=== PATIENT | female | born 1970 | race Caucasian/White ===

== ENCOUNTER 2016-10-16 08:51 | Outpatient (CLI) | payer OTHER | END 2016-10-16 18:52 | disposition home or self-care (01) | LOC: SNM 08:51 | PROVIDERS: ATTEND Internal Medicine Gastroenterology | DX: K31.84 Gastroparesis (principal) | CPT/HCPCS: 78264; A9541 ==

== ENCOUNTER 2022-10-28 20:45 | Emergency (ER) | payer OTHER ==
[~2022-10-28] VITALS: Ht 167.6 cm; Wt 99.8 kg
[2022-10-28 20:58] VITALS: BP_SYST 189
--- NOTE | 2022-10-28 21:19 | NUR ---
PT WITH BP OF 198/112. MD AND CN MADE AWARE. PT IN WAITING ROOM UNTIL BED BECOMES OPEN. PT ACCOMPANIED BY .
--- NOTE | 2022-10-28 22:33 | NUR ---
Dr. Ayala at bedside examining the patient.
--- NOTE | 2022-10-28 22:40 | NUR ---
Patient placed in ER CHAIR 2 for evaluation. Bed in lowest position with siderails up. Instructed to notify ED staff for any changes in condition or worsening of symptoms. Patient verbalized understanding.
[2022-10-28] MEDS ORDERED: cloNIDine HCL 0.1 MG TABLET PO ONE (22:45)
[2022-10-28 23:37] LABS: HEMATOCRIT 42.8 % (36-48); HEMOGLOBIN 13.6 g/dL (12.0-16.0); MEAN CORPUSCULAR HEMOGLOBIN 26 pg (27-31); MEAN CORPUSCULAR HGB CONC 32 % (32-36); MEAN CORPUSCULAR VOLUME 82 fL (79.0-98.0); PLATELET COUNT (AUTO) 291 K/uL (130-430); RED BLOOD CELL COUNT(AUTO) 5.22 MIL/uL (4.2-6.2); RED CELL DISTRIBUTION WIDTH 14.8 % (9.0-15.0)
[2022-10-28 23:50] LABS: WHITE BLOOD COUNT (AUTO) 36.4 K/uL (4.8-10.8)
[2022-10-28 23:58] LABS: ALANINE AMINOTRANSFERASE 23 U/L (12-78); ALBUMIN 3.4 g/dL (3.4-4.8); ANION GAP 5 (5-15); ASPARTATE AMINOTRANSFERASE 14 U/L (10-37); CALCIUM 8.6 mg/dL (8.4-11.0); CHLORIDE 101 mmol/L (98-107); CREATININE 0.71 mg/dL (0.55-1.30); GFR AFRICAN AMERICAN 110 mL/min (>90); GLUCOSE 136 mg/dL (70-99); TOTAL BILIRUBIN 0.5 mg/dL (0.0-1.0); UREA NITROGEN, BLOOD 15 mg/dL (8-21)
[2022-10-29] MEDS ORDERED: AMLO5TAB4 PO (00:15)
[2022-10-29] MEDS ORDERED: LISI1TAB57 PO (00:15)
--- NOTE | 2022-10-29 00:20 | NUR ---
Patient given written and verbal discharge instructions BY DR. ARREDONDO and verbalizes understanding. ER MD discussed with patient the results and treatment provided. Patient in stable condition. ID arm band removed. Rx of AMLODIPINE AND LISINOPRIL/HCTZ given. Patient educated on pain management and to follow up with PMD. Pain Scale 0/10. Opportunity for questions provided and answered. Medication side effect fact sheet provided.
[2022-10-29 00:25] LABS: BASOPHILS % (MANUAL) 0 % (0-2); EOSINOPHILS % (MANUAL) 2 % (0-7); LYMPHOCYTES % (MANUAL) 73 % (20-46); MONOCYTES % (MANUAL) 6 % (0-11)
== END 2022-10-29 01:00 | disposition home or self-care (01) ==
LOC: SED 20:45
DX: R06.02 Shortness of breath (principal); R07.9 Chest pain, unspecified; F43.9 Reaction to severe stress, unspecified; I10 Essential (primary) hypertension; J45.909 Unspecified asthma, uncomplicated; Z79.899 Other long term (current) drug therapy
CPT/HCPCS: 36415; 80053; 84484; 85007; 85027; 93005; 99284

== ENCOUNTER 2024-04-07 14:00 | Inpatient (IN) | payer OTHER ==
[~2024-04-07] VITALS: Ht 165.1 cm; Wt 104.1 kg
[~2024-04-07 14:00] MED LIST: AMLO5TAB4 PO; LISI1TAB57 PO
[2024-04-07 14:08] VITALS: BP_SYST 169; PULSE 89; RESP 22; TEMP 98.3; O2SAT 96
--- NOTE | 2024-04-07 14:45 | NUR ---
Dr Farias evaluating patient in the triage room
[2024-04-07 15:27] LABS: HEMATOCRIT 38.4 % (36-48); HEMOGLOBIN 12.7 g/dL (12.0-16.0); MEAN CORPUSCULAR HEMOGLOBIN 27 pg (27-31); MEAN CORPUSCULAR HGB CONC 33 % (32-36); MEAN CORPUSCULAR VOLUME 81 fL (79.0-98.0); PLATELET COUNT (AUTO) 311 K/uL (130-430); RED BLOOD CELL COUNT(AUTO) 4.76 MIL/uL (4.2-6.2); RED CELL DISTRIBUTION WIDTH 14.4 % (9.0-15.0); WHITE BLOOD COUNT (AUTO) 29.3 K/uL (4.8-10.8)
[2024-04-07] MEDS: methylPREDNISolone SOD SUCC/PF 62.5 MG/ML VIAL IM ONE (15:38)
[2024-04-07] MEDS: IPRATROPIUM/ALBUTEROL SULFATE 3 ML AMPUL.NEB (DUONEB) INH ONE (15:39)
--- NOTE | 2024-04-07 15:39 | NUR ---
RT AT BEDSIDE
--- NOTE | 2024-04-07 15:40 | NUR ---
PT BIBS, PT C/C SOB x4 DAYS. PT REPORTS SHE WAS AT [place] AND BELIEVES THAT IS WHERE SHE AQUIRED COVID. PT HAD FEVER A FEW DAYS AGO. PT HAS PROD COUGH, DIARRHEA, CONGESTION, GENERAL WEAKNESS. PMH OF LEAUKEMIA AND HTN. NKA. VSS.
[2024-04-07 16:14] LABS: BAND % (MANUAL) 0 % (0-6); BASOPHILS % (MANUAL) 0 % (0-2); EOSINOPHILS % (MANUAL) 1 % (0-7); HYPOCHROMASIA 1+; LYMPHOCYTES % (MANUAL) 60 % (20-46); MONOCYTES % (MANUAL) 5 % (0-11)
[2024-04-07 16:31] LABS: ANION GAP 2 (5-15); CALCIUM 8.6 mg/dL (8.4-11.0); CHLORIDE 99 mmol/L (98-107); CREATININE 0.82 mg/dL (0.55-1.30); GFR AFRICAN AMERICAN 93 mL/min (>90); GLUCOSE 122 mg/dL (74-106); SODIUM SERUM 142 mmol/L (136-145); UREA NITROGEN, BLOOD 16 mg/dL (8-21)
[2024-04-07 16:33] LABS: GFR NON AFRICAN-AMERICAN 77 mL/min (>90)
[2024-04-07 16:34] LABS: CARBON DIOXIDE 41 mmol/L (23-29); POTASSIUM 2.6 mmol/L (3.5-5.1)
--- NOTE | 2024-04-07 17:00 | NUR ---
Admit bed requested Patient will be admitted to care of . Admitted to TELE unit. Diagnosis COVID AND RESPIRATORY DISTRESS Inpatient (Yes or No) Y Observation (Yes or No) N Orientation concerns or request close to nursing station (Yes or No) N Covid Status Y On vent or bipap N Isolation requirements Y Needs a sitter N From Home (Yes or if No enter name of facility) Y Requires Dialysis (Yes or No) N Med Rec Completed (Yes of No) Y
[2024-04-07] MEDS: POTASSIUM CHLORIDE 20 MEQ/PKT PACKET PO ONE (17:15)
[2024-04-07 17:52] LABS: ABG O2 SAT% ESTIMATE 93.8 % (94.0-98.0); BLOOD GAS BASE EXCESS 10.4 mmol/L (-2.0-3.0); BLOOD GAS HCO3 34.6 mmol/L (21.0-28.0); BLOOD GAS PCO2 44.2 mmHg (32.0-45.0); BLOOD GAS PH 7.511 (7.350-7.450); BLOOD GAS PO2 62.6 mmHg (83.0-108.0)
[2024-04-07 17:56] LABS: ALLEN'S TEST POSITIVE (P)
[2024-04-07] MEDS ORDERED: KCL 20 mEq in 100 mL (PREMIX) 200 ML IV ONE (18:14)
--- NOTE | 2024-04-07 18:15 | NUR ---
continuous cardiac monitoring
[2024-04-07] MEDS: KCL 40 mEq in 100 mL (PREMIX) 100 ML IV ONE (18:25)
--- NOTE | 2024-04-07 18:29 | NUR ---
IV infusing with 20meq potassium with no issues. IV site checked within 15 minutes of initiation. call josey dale, pt instructed to call if any swelling or redness or discomfort occurs.
[2024-04-07] MEDS ORDERED: OMEP40CA20 PO (18:37)
[2024-04-07] MEDS ORDERED: HYDR25TA4 PO (18:37)
[2024-04-07] MEDS ORDERED: MONT-40 PO (18:37)
[2024-04-07] MEDS ORDERED: ROPI4TAB41 PO (18:37)
[2024-04-07] MEDS ORDERED: LOSA25TA18 PO (18:37)
--- NOTE | 2024-04-07 18:37 | NUR ---
Medication reconciliation completed with information provided by PATIENT. Any prior medication reconciliation on file was reviewed and corrected.
--- NOTE | 2024-04-07 19:15 | NUR ---
Received patient sitting up in bed, aox4, denies pain, oxygen cannula removed, o2 sat 93% on room air, denies SOB. KCL 20 MEQ at a rate of 25 ml/hr infusing to right ac, cathiter dislodged iv site, d/c and new iv started at right anterior hand 22 gauge cathiter, placement tolerated.
[2024-04-07] MEDS ORDERED: cefTRIAXone 2 GM VIAL ONE (20:13)
--- NOTE | 2024-04-07 20:15 | NUR ---
#22 Gauge left anterior hand saline lock started, 2000 ml NS bolus and rocephin 2 grams at 100 ml hr infusing to left hand iv.
[2024-04-07] MEDS: NACL 0.9% 2,000 ML IV ONE (20:23)
[2024-04-07 20:50] VITALS: O2SAT 95
--- NOTE | 2024-04-07 20:50 | NUR ---
ADMIT NOTE Received pt from ER nurseLu to the floor with a diagnosis of Severe hypokalemia, Covid, Asthma with acute exacerbation, and Early pneumonia. Admission process initiated. patient oriented to pain management, safety and call light-teach back done.
[2024-04-07 20:55] VITALS: BP_SYST 135; PULSE 81; RESP 20; TEMP 96.8; O2SAT 94
--- NOTE | 2024-04-07 20:57 | NUR ---
Patient will be admitted to care of Vic Louie. Admitted to telemetry unit. Will go to room 133 a . Belongings list completed. Complete and up to date summary report printed. SBAR report to be given at bedside with opportunity for questions.Gave report to nurse Somers.
--- NOTE | 2024-04-07 21:04 | NUR ---
CONFIRMED WITH NURSE BRANDI ORAL KCL 40 meq qiven as ordered. Pt. confirmed taking oral potassium.
[2024-04-07 21:18] VITALS: BP_SYST 135; PULSE 81; RESP 20; TEMP 96.8
[2024-04-08] VITALS: BP_SYST 138; PULSE 78; RESP 20; TEMP 97.8; O2SAT 95
--- NOTE | 2024-04-08 02:46 | NUR ---
CONSULTATION PAGED/CALLED Reason for Consultation: COVID, RESP DISTRESS Person Who was Notified: KOURTNEY Consulting Physician: RITA Industrial Gas Servicer Supervisor Specialty: Ordering Physician: GAGANDEEP
[2024-04-08] MEDS: AZITHROMYCIN 500 MG/VIAL (ZITHROMAX) IV ONE (03:26)
[2024-04-08] MEDS: AZITHROMYCIN 500 MG in NS 250 ML IV ONE (03:30)
[2024-04-08] MEDS ORDERED: ACETAMINOPHEN 325 MG TABLET PO PRN (04:15)
[2024-04-08] MEDS: *LOVENOX 1MG/KG Q24H/PHARMACY XX ONE (04:30)
[2024-04-08] MEDS: POTASSIUM CHLORIDE 20 MEQ/PKT PACKET PO SCH (05:09)
[2024-04-08] MEDS: ACETAMINOPHEN 325 MG TABLET PO PRN ×2 (05:10→12:15)
--- NOTE | 2024-04-08 05:48 | NUR ---
CONSULTATION PAGED/CALLED Reason for Consultation: COVID,RESP DISTRESS Person Who was Notified:ELYSIA Consulting Physician: FELECIA Developmental Services Worker Specialty: Ordering Physician: GAGANDEEP
--- NOTE | 2024-04-08 06:41 | NUR ---
CLOSING NOTE NO S/S OF DISTRESS NOTED, VSS, IV PATENT, PAIN DENIED, BED LOW AND LOCKED WITH SIDE RAILS UP X4, CALL LIGHT WITHIN A REACH, WILL ENDORSE DAYTIME NURSE.
--- NOTE | 2024-04-08 08:15 | NUR ---
opening note warehouse worker 2nd shift endorsed care. patient seen resting in bed with tray at bedside, respirations even and unlabored, no signs of acute distress. Patient denies any pain at this time. IV patent/benign, no IV fluids running at this time. patient a&o x4, on airborne precautions. Bed locked, in lowest position, oriented to call light.
[2024-04-08] MEDS: MONTELUKAST 10 MG TABLET PO SCH (08:16)
[2024-04-08] MEDS: LOSARTAN POTASSIUM 25 MG TABLET PO SCH (08:17)
[2024-04-08] MEDS: HYDROCHLOROTHIAZIDE 25 MG TABLET (HCTZ) PO SCH (08:17)
[2024-04-08] MEDS: amLODIPine BESYLATE 5 MG TABLET PO SCH (08:18)
[2024-04-08 08:45] VITALS: O2SAT 92
[2024-04-08] MEDS ORDERED: lisinopriL 20 MG TABLET PO SCH (09:00)
[2024-04-08] MEDS ORDERED: HYDROCHLOROTHIAZIDE 25 MG TABLET (HCTZ) PO SCH (09:00)
[2024-04-08] MEDS ORDERED: OMEPRAZOLE Non-Formulary 20 MG CAPSULE.DR PO SCH (09:00)
[2024-04-08] MEDS ORDERED: ONDANSETRON HCL 4 MG/2 ML VIAL IVP PRN (11:15)
[2024-04-08] MEDS ORDERED: HYDROcodone/ACETAMIN 5-325 MG TAB (NORCO/ VICODIN) PO PRN (11:15)
[2024-04-08] MEDS ORDERED: NALOXONE HCL 0.4 MG/ML AMP (NARCAN) IVP PRN ×2 (11:15)
[2024-04-08] MEDS ORDERED: LORazepam 2 MG/ML VIAL IVP PRN (11:15)
[2024-04-08] MEDS ORDERED: HYDROcodone/ACETAMIN 10-325 MG TAB PO PRN (11:15)
[2024-04-08 11:19] LABS: ALBUMIN 3.2 g/dL (3.4-4.8); BILIRUBIN,DIRECT 0.1 mg/dL (0.0-0.3); TOTAL BILIRUBIN 0.3 mg/dL (0.0-1.0); TOTAL PROTEIN, SERUM 6.5 g/dL (6.4-8.3)
[2024-04-08 11:44] LABS: BASOPHILS % (AUTO) 0.1 % (0.0-2.0); CALCIUM 8.4 mg/dL (8.4-11.0); CREATININE 0.7 mg/dL (0.55-1.30); HEMATOCRIT 39.6 % (36-48); HEMOGLOBIN 12.7 g/dL (12.0-16.0); LYMPHOCYTES # (AUTO) 25.4 K/uL (1.0-5.5); LYMPHOCYTES % (AUTO) 62.9 % (20.5-51.5); MEAN CORPUSCULAR HEMOGLOBIN 27 pg (27-31); MEAN CORPUSCULAR HGB CONC 32 % (32-36); MEAN CORPUSCULAR VOLUME 83 fL (79.0-98.0); MONOCYTES # (AUTO) 0.6 K/uL (0.0-1.0); MONOCYTES % (AUTO) 1.6 % (1.7-9.3); NEUTROPHILS # (AUTO) 14.3 K/uL (1.8-7.7); PLATELET COUNT (AUTO) 327 K/uL (130-430); POTASSIUM 3.5 mmol/L (3.5-5.1); RED BLOOD CELL COUNT(AUTO) 4.81 MIL/uL (4.2-6.2); RED CELL DISTRIBUTION WIDTH 14.4 % (9.0-15.0)
[2024-04-08] MEDS: DECADRON 4 MG TABLET PO ONE (12:19)
[2024-04-08 12:37] LABS: WHITE BLOOD COUNT (AUTO) 40.4 K/uL (4.8-10.8)
[2024-04-08 12:43] LABS: NEUTROPHILS % (AUTO) 35.4 % (40.0-70.0)
[2024-04-08 12:55] VITALS: BP_SYST 139; PULSE 87; RESP 18; TEMP 97.9; O2SAT 95
[2024-04-08] MEDS: NORMAL SALINE 5 ML DISP.SYRIN IVF SCH (14:28)
--- NOTE | 2024-04-08 14:32 | NUR ---
Reported critical lab value WBCs 40.[address] Louie
[2024-04-08 16:31] VITALS: BP_SYST 132; PULSE 87; RESP 16; TEMP 97.6; O2SAT 95
[2024-04-08 19:00] VITALS: O2SAT 94
--- NOTE | 2024-04-08 19:00 | NUR ---
closing note patient seen resting in bed, no signs of acute distress, patient denies any pain at this time. Iv fluid running, iv patent./benign. Bed locked, in lowest position, and oriented to call light.
--- NOTE | 2024-04-08 19:20 | NUR ---
OPENING NOTE NO S/S OF DISTRESS NOTED, PAIN DENIED, BED LOW AND LOCKED WITH SIDE RAILS UP X2, CALL LIGHT WITHIN A REACH.
[2024-04-08 20:00] VITALS: BP_SYST 135; PULSE 82; RESP 20; TEMP 97.6; O2SAT 94
[2024-04-08] MEDS: cefTRIAXone 1 GM in D5W 50 ML IV SCH (22:14)
[2024-04-09] VITALS: BP_SYST 128; PULSE 78; RESP 18; TEMP 98.1; O2SAT 95
[2024-04-09 05:39] LABS: BASOPHILS % (AUTO) 0.1 % (0.0-2.0); LYMPHOCYTES # (AUTO) 30.1 K/uL (1.0-5.5); MEAN CORPUSCULAR HEMOGLOBIN 26 pg (27-31); MEAN CORPUSCULAR HGB CONC 32 % (32-36); MEAN CORPUSCULAR VOLUME 83 fL (79.0-98.0); MONOCYTES # (AUTO) 1.2 K/uL (0.0-1.0); MONOCYTES % (AUTO) 2.3 % (1.7-9.3); NEUTROPHILS # (AUTO) 19.7 K/uL (1.8-7.7); NEUTROPHILS % (AUTO) 38.6 % (40.0-70.0); PLATELET COUNT (AUTO) 368 K/uL (130-430); RED BLOOD CELL COUNT(AUTO) 4.58 MIL/uL (4.2-6.2); RED CELL DISTRIBUTION WIDTH 14.3 % (9.0-15.0)
[2024-04-09 06:09] LABS: CALCIUM 8.5 mg/dL (8.4-11.0); CREATININE 0.72 mg/dL (0.55-1.30); TOTAL BILIRUBIN 0.2 mg/dL (0.0-1.0); TOTAL PROTEIN, SERUM 6.2 g/dL (6.4-8.3)
--- NOTE | 2024-04-09 06:13 | NUR ---
CLOSING NOTE PT ALERT, ORIENTED TO TIME, PLACE, AND DATE, VSS, NO S/S OF DISTRESS NOTED, PAIN DENIED, BED LOW AND LOCKED WITH SIDE RAILS UPX4, CALL LIGHT WITHIN A REACH, WILL ENDORSE DAYTIME NURSE.
[2024-04-09 06:30] LABS: POTASSIUM 2.8 mmol/L (3.5-5.1)
[2024-04-09 08:30] VITALS: O2SAT 94
--- NOTE | 2024-04-09 08:45 | NUR ---
OPENING NOTE PRODUCTION SUPERVISOR ENDORSED CARE. PATIENT SEEN RESTING IN BED, NO OXYGEN BEING USED, RESPIRATIONS EVEN AND UNLABORED, NO SIGNS OF ACUTE DISTRESS. PATIENT DENIES PAIN. IV SITE PATENT/BENIGN, NO SIGNS OF SWELLING OR ERYTHEMA. BED LOCKED, IN LOWEST POSITION, CALL LIGHT IN REACH.
[2024-04-09] MEDS: AZITHROMYCIN 250 MG in NS 250 ML IV SCH (08:48)
[2024-04-09] MEDS: DECADRON 4 MG TABLET PO SCH (08:58)
[2024-04-09] MEDS: PANTOPRAZOLE SODIUM 40 MG TAB PO SCH (08:59)
[2024-04-09] MEDS: ENOXAPARIN SODIUM 40 MG/0.4 ML SYRINGE SUBCUT SCH (09:00)
[2024-04-09 12:57] LABS: WHITE BLOOD COUNT (AUTO) 51.1 K/uL (4.8-10.8)
[2024-04-09 13:29] VITALS: BP_SYST 145; PULSE 88; RESP 19; TEMP 97.6; O2SAT 91
[2024-04-09] MEDS: KCL 40 mEq in 100 mL (PREMIX) 100 ML IV ONE (14:48)
[2024-04-09 17:29] VITALS: BP_SYST 143; PULSE 96; RESP 19; TEMP 97.7; O2SAT 94
--- NOTE | 2024-04-09 18:00 | NUR ---
DR. SALINAS AT BEDSIDE
--- NOTE | 2024-04-09 19:04 | NUR ---
CLOSING NOTE PATIENT SITTING UP IN BED WITH TRAY AT BEDSIDE. ABX RUNNING ON IV - SITE PATENT, NO SWELLING OR ERYTHEMA. ON ROOM AIR, NO ACUTE RESPIRATORY DISTRESS NOTED. BED LOCKED, IN LOWEST POSITION, CALL LIGHT IN REACH. NEEDS MET AT THIS TIME.
--- NOTE | 2024-04-09 19:15 | NUR ---
OPENING NOTE REPORT RECEIVED FROM DAYSHIFT NURSE. PATIENT RECEIVED LYING IN BED, AWAKE, NO S/S OF ACUTE DISTRESS. BREATHING EVEN AND UNLABORED. HOB RAISED. NASAL CANULA ATTACHED PROPERLY, ON 2L OF OXYGEN. IV SITE PATENT.CALL LIGHT WITH PATIENT. BED IS LOCKED AND AT LOWEST POSITION. PLAN OF CARE ON GOING.
[2024-04-09 20:00] VITALS: BP_SYST 139; PULSE 82; RESP 18; TEMP 97.5; O2SAT 93
[2024-04-09 21:10] VITALS: O2SAT 93
--- NOTE | 2024-04-09 23:24 | NUR ---
ROUNDS PATIENT IN BED, RESTING. NO SIGNS OF DISCOMFORT NOTED. HOB RAISED.ALL NEEDS MET. SAFETY, ISOLATION PRECAUTIONS IN PLACE. CALL LIGHT WITH PATIENT. PLAN OF CARE ON GOING.
[2024-04-10] VITALS: BP_SYST 134; PULSE 78; RESP 18; TEMP 97.4; O2SAT 94
--- NOTE | 2024-04-10 03:19 | NUR ---
ROUNDS PATIENT IN BED, AWAKE, READING A BOOK. GRAPE JUICE PROVIDED PER REQUEST. NO SIGNS OF DISCOMFORT. CHEST RISE AND FALL EVEN BILATERALLY. ALL NEEDS MET. CALL LIGHT WITH PATIENT. PLAN OF CARE ON GOING.
--- NOTE | 2024-04-10 06:29 | NUR ---
CLOSING NOTE PATIENT IN BED, RESTING. NO S/S OF ACUTE DISTRESS. BREATHING EVEN AND UNLABORED. HOB RAISED. NASAL CANULA ATTACHED PROPERLY, ON 2L OF OXYGEN. IV SITE PATENT. ALL NEEDS MET THROUGHOUT SHIFT. FALL, SAFETY, ISOLATION PRECAUTIONS MAINTAINED THROUGHOUT SHIFT. PLAN OF CARE ON GOING.
[2024-04-10 08:00] VITALS: BP_SYST 131; PULSE 73; RESP 16; TEMP 97.2; O2SAT 94; O2SAT 95
--- NOTE | 2024-04-10 08:27 | NUR ---
opening note engineering technician endorsed care. Patient seen a&o x4, respirations even/unlabored. No signs of acute distress, patient denies pain at this time. No IV fluids running at this time. On room air currently. Oriented to call light.
[2024-04-10 08:52] LABS: HEMATOCRIT 37.5 % (36-48); MEAN CORPUSCULAR HEMOGLOBIN 26 pg (27-31); MEAN CORPUSCULAR HGB CONC 32 % (32-36); MEAN CORPUSCULAR VOLUME 83 fL (79.0-98.0); PLATELET COUNT (AUTO) 367 K/uL (130-430); RED BLOOD CELL COUNT(AUTO) 4.54 MIL/uL (4.2-6.2); RED CELL DISTRIBUTION WIDTH 14.6 % (9.0-15.0)
[2024-04-10 08:59] LABS: ERYTHROCYTE SEDIMENTATION RATE 14 MM/HR (0-20)
[2024-04-10 09:00] LABS: ALBUMIN 2.9 g/dL (3.4-4.8); CALCIUM 8.1 mg/dL (8.4-11.0); CREATININE 0.71 mg/dL (0.55-1.30); POTASSIUM 3.1 mmol/L (3.5-5.1); TOTAL BILIRUBIN 0.3 mg/dL (0.0-1.0); TOTAL PROTEIN, SERUM 5.8 g/dL (6.4-8.3)
[2024-04-10 09:06] LABS: WHITE BLOOD COUNT (AUTO) 46.2 K/uL (4.8-10.8)
[2024-04-10 11:09] VITALS: BP_SYST 128; PULSE 73; RESP 16; TEMP 97.4; O2SAT 95
[2024-04-10] MEDS: POTASSIUM CHLORIDE 20 MEQ TABLET.ER PO ONE (14:32)
[2024-04-10 15:23] LABS: ATYPICAL LYMPHOCYTES % 27 % (0-0); BAND % (MANUAL) 2 % (0-6); BASOPHILS % (MANUAL) 0 % (0-2); EOSINOPHILS % (MANUAL) 0 % (0-7); LYMPHOCYTES % (MANUAL) 39 % (20-46); MONOCYTES % (MANUAL) 3 % (0-11); PLATELET ESTIMATE ADEQUATE (ADEQUATE)
[2024-04-10 16:11] VITALS: BP_SYST 128; PULSE 105; RESP 22; TEMP 97.1; O2SAT 95
--- NOTE | 2024-04-10 18:55 | NUR ---
CLOSING NOTE PATIENT SEEN RESTING IN BED ON ROOM AIR, NO SIGNS OF RESPIRATORY DISTRESS, PATIENT DENIES ANY PAIN AT THIS TIME. TRAY AT BEDSIDE. ABX RUNNING IV, SITE PATENT/BENIGN, NO SWELLING OR ERYTHEMA. BED LOCKED, IN LOWEST POSITION, AND ORIENTED PATIENT TO CALL CRENSHAW
--- NOTE | 2024-04-10 19:15 | NUR ---
OPENING NOTE REPORT RECEIVED FROM DAYSHIFT NURSE. PATIENT RECEIVED LYING IN BED, AWAKE, NO S/S OF ACUTE DISTRESS. BREATHING EVEN AND UNLABORED. HOB RAISED. IV SITE PATENT. CALL LIGHT WITH PATIENT. BED IS LOCKED AND AT LOWEST POSITION. PLAN OF CARE ON GOING.
[2024-04-10 20:00] VITALS: BP_SYST 117; PULSE 66; RESP 18; TEMP 97.2; O2SAT 95
[2024-04-10] MEDS: ZOLPIDEM TARTRATE 5 MG TABLET PO PRN (20:54)
--- NOTE | 2024-04-10 23:00 | NUR ---
ROUNDS PATIENT IN BED, RESTING. NO SIGNS OF DISCOMFORT. CHEST RISE AND FALL EVEN BILATERALLY. ALL NEEDS MET. SAFETY, ISOLATION PRECAUTIONS IN PLACE. PLAN OF CARE ON GOING.
[2024-04-11] VITALS: BP_SYST 122; PULSE 74; RESP 18; TEMP 97.1; O2SAT 94
--- NOTE | 2024-04-11 06:06 | NUR ---
CLOSING NOTE PATIENT IN BED, RESTING AT THIS TIME. NO S/S OF ACUTE DISTRESS. BREATHING EVEN AND UNLABORED. IV SITE PATENT. ALL NEEDS MET THROUGHOUT SHIFT. FALL, SAFETY, ISOLATION PRECAUTIONS MAINTAINED THROUGHOUT SHIFT. PLAN OF CARE ON GOING.
[2024-04-11 07:19] LABS: HEMATOCRIT 40.5 % (36-48); HEMOGLOBIN 12.8 g/dL (12.0-16.0); MEAN CORPUSCULAR HEMOGLOBIN 26 pg (27-31); MEAN CORPUSCULAR HGB CONC 32 % (32-36); MEAN CORPUSCULAR VOLUME 83 fL (79.0-98.0); PLATELET COUNT (AUTO) 439 K/uL (130-430); RED BLOOD CELL COUNT(AUTO) 4.86 MIL/uL (4.2-6.2); RED CELL DISTRIBUTION WIDTH 14.5 % (9.0-15.0)
[2024-04-11 07:31] LABS: ALBUMIN 3.1 g/dL (3.4-4.8); CALCIUM 8.4 mg/dL (8.4-11.0); CREATININE 0.69 mg/dL (0.55-1.30); POTASSIUM 3.2 mmol/L (3.5-5.1); TOTAL BILIRUBIN 0.3 mg/dL (0.0-1.0); TOTAL PROTEIN, SERUM 6.2 g/dL (6.4-8.3)
[2024-04-11 07:51] VITALS: BP_SYST 143; PULSE 71; RESP 18; TEMP 97.4; O2SAT 93
[2024-04-11 07:59] LABS: ERYTHROCYTE SEDIMENTATION RATE 17 MM/HR (0-20)
[2024-04-11 08:00] VITALS: O2SAT 93
[2024-04-11 08:19] LABS: WHITE BLOOD COUNT (AUTO) 56.1 K/uL (4.8-10.8)
[2024-04-11 11:37] LABS: ATYPICAL LYMPHOCYTES % 14 % (0-0); BAND % (MANUAL) 1 % (0-6); BASOPHILS % (MANUAL) 0 % (0-2); EOSINOPHILS % (MANUAL) 0 % (0-7); LYMPHOCYTES % (MANUAL) 58 % (20-46); MONOCYTES % (MANUAL) 2 % (0-11); PLATELET ESTIMATE INCREASED (ADEQUATE); SMUDGE CELLS FEW
[2024-04-11 11:38] LABS: HYPOCHROMASIA SLIGHT
[2024-04-11 11:57] VITALS: BP_SYST 141; PULSE 72; RESP 15; TEMP 97.6; O2SAT 92
--- NOTE | 2024-04-11 12:21 | NUR ---
CONSULTATION REASON FOR CONSULT: LEUKEMIA CONSULTING PHYSICIAN: ROSANNE ORDERING PHYSICIAN: GAGANDEEP SPOKE WITH PERRY [phone]
[2024-04-11 16:13] VITALS: BP_SYST 126; PULSE 74; RESP 16; TEMP 97.6; O2SAT 92
--- NOTE | 2024-04-11 18:30 | NUR ---
Closing Note Pt was checked on q1' and PRN all shift for needs and care. Pt ambulates to restroom independently with steady gait all shift in room. Pt maintained with safety and isolation precautions all shift. Pt next to nurses' station for close observation. Call light within reach. Pt has been on room air all shift. Pt stable and denies any needs at this time.
--- NOTE | 2024-04-11 19:30 | NUR ---
Opening note: Patient AOx4 in bed with no c/o pain, VS WNL. Patient's oxygen level 95-99%. Non-productive cough and ambulate to bathroom without assistance and steady.
[2024-04-11 21:00] VITALS: BP_SYST 130; PULSE 65; RESP 16; TEMP 97.2; O2SAT 95
[2024-04-12] VITALS: BP_SYST 129; PULSE 60; RESP 16; TEMP 97.9; O2SAT 99
--- NOTE | 2024-04-12 02:00 | NUR ---
Dr. Frey had a visit with the patient and she stated after she finishes her antibiotic therapy Dr. Frey said she could go home. Patient continues with optimum oxygen saturation 95-99% and non-productive cough. Denies pain at this time.
--- NOTE | 2024-04-12 06:01 | NUR ---
Closing note: Patient AOx4 and in bed resting with eyes closed, continues on IV antibiotics without any ase. Breaths even and unlabored.
[2024-04-12 06:41] LABS: BASOPHILS % (AUTO) 0.1 % (0.0-2.0); EOSINOPHILS # (AUTO) 0.1 K/uL (0.0-0.4); EOSINOPHILS % (AUTO) 0.1 % (0.0-4.0); HEMATOCRIT 38.4 % (36-48); HEMOGLOBIN 12.4 g/dL (12.0-16.0); LYMPHOCYTES # (AUTO) 33.2 K/uL (1.0-5.5); LYMPHOCYTES % (AUTO) 71.8 % (20.5-51.5); MEAN CORPUSCULAR HEMOGLOBIN 27 pg (27-31); MEAN CORPUSCULAR HGB CONC 32 % (32-36); MEAN CORPUSCULAR VOLUME 82 fL (79.0-98.0); MONOCYTES # (AUTO) 1.7 K/uL (0.0-1.0); MONOCYTES % (AUTO) 3.7 % (1.7-9.3); NEUTROPHILS # (AUTO) 11.2 K/uL (1.8-7.7); PLATELET COUNT (AUTO) 364 K/uL (130-430); RED BLOOD CELL COUNT(AUTO) 4.67 MIL/uL (4.2-6.2); RED CELL DISTRIBUTION WIDTH 14.6 % (9.0-15.0)
[2024-04-12 07:10] LABS: ALBUMIN 2.9 g/dL (3.4-4.8); CALCIUM 8.3 mg/dL (8.4-11.0); CREATININE 0.7 mg/dL (0.55-1.30); POTASSIUM 3.4 mmol/L (3.5-5.1); TOTAL BILIRUBIN 0.3 mg/dL (0.0-1.0); TOTAL PROTEIN, SERUM 5.6 g/dL (6.4-8.3)
[2024-04-12 08:00] VITALS: BP_SYST 142; PULSE 73; RESP 18; TEMP 97.8; O2SAT 98
[2024-04-12 08:01] LABS: ERYTHROCYTE SEDIMENTATION RATE 7 MM/HR (0-20)
[2024-04-12 08:14] LABS: WHITE BLOOD COUNT (AUTO) 46.2 K/uL (4.8-10.8)
[2024-04-12 08:15] LABS: NEUTROPHILS % (AUTO) 24.3 % (40.0-70.0)
--- NOTE | 2024-04-12 10:22 | NUR ---
HIGH ALERT NOTE: Called Dr. DURAND back at [phone] identified within the medical roster to verify physician authenticity. KDUR 40MEQ PO ONCE ORDERED BY DR. DURAND WITH READ BACK VERIFIED.
[2024-04-12] MEDS ORDERED: ASPI-1393 PO (10:40)
[2024-04-12] MEDS ORDERED: ZIT250 PO (10:40)
[2024-04-12 12:00] VITALS: BP_SYST 132; PULSE 68; RESP 18; TEMP 97.4; O2SAT 98
[2024-04-12] MEDS: POTASSIUM CHLORIDE 20 MEQ TABLET.ER PO ONE (12:21)
[2024-04-12 16:00] VITALS: BP_SYST 103; PULSE 74; RESP 22; TEMP 97.6; O2SAT 94
[2024-04-12 18:04] VITALS: BP_SYST 103; PULSE 74; RESP 22; TEMP 97.6; O2SAT 94
--- NOTE | 2024-04-12 18:50 | NUR ---
PATIENT DISCHARGED. DISCHARGE PACKET COMPLETED, SIGNED, ORIGINAL IN CHART, AND COPY WITH PATIENT. IV REMOVED, DRESSING APPLIED, CATHETER TIP INTACT AFTER REMOVAL, AND DRESSING CLEAN DRY AND INTACT AT DISCHARGE. ALL BELONGINGS DISCHARGED WITH PATIENT. PATIENT VOICED UNDERSTANDING OF ALL DISCHARGE EDUCATION/INSTRUCTIONS. PATIENT TAKEN TO CAR IN WHEELCHAIR. PATIENT DROVE HERSELF TO HOSPITAL UPON ADMISSION AND SO SHE WAS DISCHARGED TO HERSELF UPON DISCHARGE. CHARGE NURSE ROB CARLIN.
== END 2024-04-12 18:50 | disposition home or self-care (01) | DRG 871 ==
LOC: SED 14:00 → STU 17:05
PROVIDERS: ADMIT Preventive Medicine Preventive Medicine/Occupational Environmental Medicine; ATTEND Specialist
DX: A41.89 Other specified sepsis (principal); J12.82 Pneumonia due to coronavirus disease 2019; U07.1 COVID-19; J96.01 Acute respiratory failure with hypoxia; E44.0 Moderate protein-calorie malnutrition; C91.10 Chronic lymphocytic leukemia of B-cell type not having achieved remission; J45.901 Unspecified asthma with (acute) exacerbation; D75.839 Thrombocytosis, unspecified; I10 Essential (primary) hypertension; G47.30 Sleep apnea, unspecified; E87.6 Hypokalemia; E83.52 Hypercalcemia; E88.09 Other disorders of plasma-protein metabolism, not elsewhere classified; Z79.01 Long term (current) use of anticoagulants; Z79.82 Long term (current) use of aspirin; Z79.899 Other long term (current) drug therapy; Z68.38 Body mass index [BMI] 38.0-38.9, adult
CPT/HCPCS: 36415; 36600; 71045; 80048; 80053; 80076; 82784; 82803; 83605; 83880; 84484; 85007; 85025; 85027; 85651; 87040; 93005; 94640; 94760; 96365; 99291; J0456; J0696; J1650; J2930; J3480; J7050; J7060; J8540